=== PATIENT | female | born 1985 | race Caucasian/White ===

== ENCOUNTER 2017-08-18 21:43 | Emergency (ER) | payer SELFPAY ==
[~2017-08-18] VITALS: Ht 162.6 cm; Wt 65.0 kg
[~2017-08-18 21:43] MED LIST: IBUP100S PO; PENI500T PO; TYLE3 PO
[2017-08-18 21:46] VITALS: BP 111/58; PULSE 86; RESP 16; TEMP 98.4; O2SAT 99
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
[2017-08-18] MEDS ORDERED: KETOROLAC TROMETHAMINE 60 MG/2 ML (IM) VIAL IM ONE (22:15)
[2017-08-18] MEDS ORDERED: RESP: ALBUTEROL 2.5 MG/IPRATROPIUM 0.5 MG NEB (SCH) NEB ONE (22:15)
--- NOTE | 2017-08-18 22:38 | RADRPT ---
EXAM DATE/TIME: 08/18/2017 22:27 [facility] COMPARISON: No previous studies available for comparison. INDICATIONS : Right side, posterior rib pain since . Cold symptoms appeared 2 days ago. MEDICAL HISTORY : None. SURGICAL HISTORY : None. ENCOUNTER: Initial ACUITY: 1 week PAIN SCORE: 10/10 LOCATION: Right posterior rib pain. FINDINGS: A single view of the chest demonstrates the lungs to be symmetrically aerated without evidence of mas s, infiltrate or effusion. The cardiomediastinal contours are unremarkable. Osseous structures are intact. CONCLUSION: No acute disease. Rodri Heller MD on August 18, 2017 at 22:35 Board Certified Radiologist. This report was verified electronically.
[2017-08-18] MEDS ORDERED: IBUP-232 PO (22:42)
[2017-08-18] MEDS ORDERED: NORC5TAB PO (22:42)
== END 2017-08-18 23:15 | disposition home or self-care (01) ==
LOC: NEPD 21:43
DX: S22.41XA Multiple fractures of ribs, right side, initial encounter for closed fracture (principal); R05 Cough; Y04.2XXA Assault by strike against or bumped into by another person, initial encounter; Z72.0 Tobacco use; Z88.6 Allergy status to analgesic agent
CPT/HCPCS: 71045; 94150; 94664; 96372; 99284; J1885